=== PATIENT | male | born 1965 | race Caucasian/White ===

== ENCOUNTER 2021-10-24 11:12 | Emergency (ER) | payer OTHER ==
[~2021-10-24] VITALS: Ht 172.7 cm; Wt 75.0 kg
[2021-10-24 12:05] LABS: BASO % 0.9 % (0.0-1.0); EOS % 0.9 % (0.0-3.0); HEMATOCRIT 45.7 % (42.0-52.0); HEMOGLOBIN 16.7 g/dl (13.5-17.5); LYMPH # 1.3 10^3/uL (1.5-5.0); LYMPH % 30.7 % (24.0-44.0); MEAN CORPUSCULAR HEMOGLOBIN 33.5 pg (27.0-33.0); MEAN CORPUSCULAR HGB CONC 36.5 g/dl (32.0-36.5); MEAN CORPUSCULAR VOLUME 91.6 fl (80.0-96.0); MONO # 0.3 10^3/uL (0.0-0.8); NEUTROPHILS # 2.6 10^3/uL (1.5-8.5); PLATELET COUNT, AUTOMATED 201 10^3/uL (150-450); RED BLOOD COUNT 4.99 10^6/uL (4.30-6.10); WHITE BLOOD COUNT 4.3 10^3/uL (4.0-10.0)
[2021-10-24] MEDS: METOPROLOL 5 MG/5 ML VIAL IV SCH ×3 (12:14→12:40)
[2021-10-24] MEDS ORDERED: TIKO500C PO (12:17)
[2021-10-24 12:40] VITALS: BP 135/102
[2021-10-24 12:46] LABS: BLOOD UREA NITROGEN 8 MG/DL (7-18); CALCIUM LEVEL 8.3 MG/DL (8.5-10.1); CARBON DIOXIDE LEVEL 27 MEQ/L (21-32); CHLORIDE LEVEL 110 MEQ/L (98-107); CREATININE FOR GFR 0.74 MG/DL (0.70-1.30); GLOMERULAR FILTRATION RATE > 60.0 (>56); GLUCOSE, FASTING 120 MG/DL (70-100); POTASSIUM SERUM 4.3 MEQ/L (3.5-5.1); SODIUM LEVEL 141 MEQ/L (136-145)
[2021-10-24] MEDS ORDERED: ELIQ5TAB PO (15:27)
[2021-10-24 15:30] VITALS: BP 136/104
== END 2021-10-24 15:44 | disposition home or self-care (01) ==
LOC: M ED 11:12
DX: I48.0 Paroxysmal atrial fibrillation (principal); F41.9 Anxiety disorder, unspecified; Z79.01 Long term (current) use of anticoagulants